=== PATIENT | female | born 1955 | race Asian ===

== ENCOUNTER 2018-02-24 08:42 | Outpatient (CLI) | payer OTHER | END 2018-02-24 19:37 | disposition home or self-care (01) | LOC: RAD 08:42 | DX: Z04.8 Encounter for examination and observation for other specified reasons (principal); Z00.8 Encounter for other general examination ==

== ENCOUNTER 2019-10-22 21:22 | Emergency (ER) | payer OTHER ==
[~2019-10-22] VITALS: Ht 165.1 cm; Wt 113.4 kg
[2019-10-22 22:35] LABS: PLATELET COUNT 392 K/uL (152-353)
[2019-10-22 22:40] LABS: POTASSIUM 4.1 mmol/L (3.6-5.2)
[2019-10-23 00:30] VITALS: BP 195/89; TEMP 98.6
== END 2019-10-23 00:35 | disposition home or self-care (01) ==
LOC: ED 21:22
PROVIDERS: Family Medicine
DX: N20.0 Calculus of kidney (principal); N39.0 Urinary tract infection, site not specified
CPT/HCPCS: 36415; 80053; 81000; 83605; 85027; 87086; 87088; 96374; 99284; J1885

== ENCOUNTER 2021-02-21 15:30 | Emergency (ER) | payer OTHER ==
[~2021-02-21] VITALS: Ht 165.1 cm; Wt 113.4 kg
[2021-02-21 17:31] LABS: PLATELET COUNT 401 K/uL (152-353)
[2021-02-21 17:36] LABS: POTASSIUM 4.1 mmol/L (3.6-5.2)
[2021-02-21 20:00] VITALS: BP 172/90; TEMP 98.7
== END 2021-02-21 20:00 | disposition home or self-care (01) ==
LOC: ED 15:30
PROVIDERS: Family Medicine
DX: R10.84 Generalized abdominal pain (principal); K81.9 Cholecystitis, unspecified; K57.30 Diverticulosis of large intestine without perforation or abscess without bleeding
CPT/HCPCS: 36415; 80053; 81000; 82150; 83690; 85027; 96374; 96375; 99284; J2175; J2405

== ENCOUNTER 2021-03-29 10:08 | Emergency (ER) | payer OTHER ==
[~2021-03-29] VITALS: Ht 165.1 cm; Wt 100.7 kg
[2021-03-29 10:30] VITALS: TEMP 98.1
[2021-03-29 11:49] LABS: PLATELET COUNT 305 K/uL (152-353)
[2021-03-29 11:53] LABS: POTASSIUM 3.9 mmol/L (3.6-5.2)
[2021-03-29 12:51] VITALS: BP 116/73
== END 2021-03-29 12:51 | disposition home or self-care (01) ==
LOC: ED 10:08
PROVIDERS: Hospitalist
DX: K82.8 Other specified diseases of gallbladder (principal); R11.2 Nausea with vomiting, unspecified
CPT/HCPCS: 80053; 81000; 83690; 85027; 96360; 96375; 99284; J1170; J1885; J2405

== ENCOUNTER 2021-04-13 02:38 | Emergency (ER) | payer OTHER ==
[~2021-04-13] VITALS: Ht 170.2 cm; Wt 95.3 kg
[2021-04-13 03:06] LABS: PLATELET COUNT 340 K/uL (152-353)
[2021-04-13 03:12] LABS: PARTIAL THROMBOPLASTIN TIME 22.4 SECONDS (24.5-33.6)
[2021-04-13] MEDS ORDERED: LISI20TA11 PO (03:18)
[2021-04-13] MEDS ORDERED: HYDR5TAB9 PO (03:19)
[2021-04-13] MEDS ORDERED: ONDA4TAB3 PO (03:19)
[2021-04-13] MEDS ORDERED: OMEPRAZOLE DR40 MG PO (03:21)
[2021-04-13] MEDS ORDERED: ARNUITY EL50 MCG/ACT NAS (03:22)
[2021-04-13 07:30] VITALS: TEMP 98.1
[2021-04-13 08:00] VITALS: BP 123/81
== END 2021-04-13 08:25 | disposition short-term general hospital (02) ==
LOC: ED 02:38
PROVIDERS: Hospitalist
DX: I26.99 Other pulmonary embolism without acute cor pulmonale (principal); R06.02 Shortness of breath; K82.8 Other specified diseases of gallbladder; Z11.52 Encounter for screening for COVID-19
CPT/HCPCS: 36415; 36600; 80053; 82550; 82805; 83880; 84484; 85027; 85379; 85610; 85730; 87635; 93005; 96365; 96372; 96375; 99284; J0171; J1200; J1650; J2270; J2543; U0003

== ENCOUNTER 2021-06-11 10:57 | Outpatient (CLI) | payer OTHER ==
[~2021-06-11 10:57] MED LIST: ARNUITY EL50 MCG/ACT NAS; HYDR5TAB9 PO; LISI20TA11 PO; OMEPRAZOLE DR40 MG PO; ONDA4TAB3 PO
[2021-06-11 11:17] LABS: PLATELET COUNT 415 K/uL (152-353)
[2021-06-11 11:41] LABS: POTASSIUM 3.6 mmol/L (3.6-5.2)
== END 2021-06-11 19:00 | disposition home or self-care (01) ==
LOC: LABW 10:57
PROVIDERS: ATTEND Internal Medicine Nephrology
DX: E55.9 Vitamin D deficiency, unspecified (principal); E87.3 Alkalosis; D64.9 Anemia, unspecified; I10 Essential (primary) hypertension; I26.99 Other pulmonary embolism without acute cor pulmonale; I82.409 Acute embolism and thrombosis of unspecified deep veins of unspecified lower extremity; K21.9 Gastro-esophageal reflux disease without esophagitis; K80.20 Calculus of gallbladder without cholecystitis without obstruction; N17.9 Acute kidney failure, unspecified; R42 Dizziness and giddiness
CPT/HCPCS: 36415; 80053; 81000; 82306; 82570; 82728; 83540; 83550; 83970; 84155; 85027